=== PATIENT | female | born 1960 | race Hispanic/Latino ===

== ENCOUNTER 2017-11-16 10:15 | Day surgery (SDC) | payer BC ==
[2017-11-12 14:59] LABS: Absolute Lymphocytes (CBC) 1.6 K/uL (0.7-4.9); Absolute Monocytes 0.4 K/uL (0.1-1.3); Basophils % 0.7 % (0-1.3); Eosinophils % 2.8 % (0-4.4); Hematocrit 39.5 % (36.0-45.0); Lymphocytes % 26.3 % (15.3-44.8); MCH 26.5 pg (27.0-35.0); MCV 81.1 fL (80-100); MPV 9.5 fL (7.6-11.3); Monocytes % 5.7 % (3.3-12.3); RBC Red Blood Cell Count 4.87 M/uL (3.86-4.86)
--- NOTE | 2017-11-12 15:05 | EKG ---
Test Date: 2017-11-12 Test Time: 14:48:35 Demi Chef: EDNA MEASUREMENT RESULTS: Intervals: Rate: 59 MN: 134 QRSD: 88 QT: 416 QTc: 411 [place]: P: 23 MN: 134 QRS: 27 T: 35 INTERPRETIVE STATEMENTS: Sinus bradycardia Otherwise normal ECG No previous ECG available for comparison Electronically Signed On 11-12-17 15:05:14 CDT by Dk Pillai
--- NOTE | 2017-11-12 15:28 | RAD REPORT ---
EXAM DESCRIPTION: RAD - Chest Pa And Lat (2 Views) - 11/12/2017 3:21 pm CLINICAL HISTORY: Abdominal pain Chest pain. COMPARISON: CHEST SINGLE VIEW dated 06/17/2015 FINDINGS: The lungs are clear. The heart is normal in size. No displaced fractures. IMPRESSION: No acute or concerning finding suspected.
[2017-11-12 15:33] LABS: ALT/SGPT 35 U/L (12-78); AST/SGOT 26 U/L (15-37); Albumin 4.4 g/dL (3.4-5.0); Alkaline Phosphatase 97 U/L (45-117); Amylase Level 75 U/L (25-115); BUN Blood Urea Nitrogen 18 mg/dL (7-18); Bicarbonate 28 mmol/L (21-32); Bilirubin Direct < 0.1 mg/dL (0-0.2); Bilirubin Total 0.4 mg/dL (0.2-1.0); Glucose Level 90 mg/dL (74-106); Lipase 210 U/L (73-393); Potassium 4.6 mmol/L (3.5-5.1); Protein, Total 8.7 g/dL (6.4-8.2); Sodium Level 140 mmol/L (136-145)
[~2017-11-16 10:15] MED LIST: CEFOXITIN/SWI 1gm 1 GM/10 ML SYR IVP SCH
[2017-11-16] MEDS ORDERED: LIDOCAINE 1% MPF 5 ML VIAL ONE (10:41)
[2017-11-16] MEDS ORDERED: PROPOFOL 200 MG/20 ML VIAL IV ONE (10:41)
[2017-11-16] MEDS ORDERED: MIDAZOLAM HCL 2 MG/2 ML INJ ONE (10:41)
[2017-11-16] MEDS ORDERED: FENTANYL CITR 100 MCG/2 ML ONE (10:42)
[2017-11-16] MEDS ORDERED: ROCURONIUM 50 MG/5 ML VIAL IV ONE (10:42)
[2017-11-16] MEDS ORDERED: NA CHLORIDE 0.9% 1,000 ML ONE (10:49)
[2017-11-16] MEDS ORDERED: CEFOXITIN/SWI 1gm 1 GM/10 ML SYR ONE (11:40)
[2017-11-16] MEDS ORDERED: GLYCOPYRROLATE 0.2 MG/ML SYR ONE ×2 (12:14→12:18)
[2017-11-16] MEDS ORDERED: EPHEDRINE SULF 50 MG/10 ML SYR ONE (12:15)
[2017-11-16] MEDS ORDERED: ONDANSETRON HCL 40 MG/20 ML VIAL ONE (12:18)
[2017-11-16] MEDS ORDERED: KETOROLAC 30 MG/ML INJ ONE (12:18)
[2017-11-16] MEDS ORDERED: NEOSTIGMINE 1 MG/ML -5 ML SYRINGE ONE (12:20)
--- NOTE | 2017-11-16 12:36 | P.BOP ---
Preoperative diagnosis: acute cholecystitis,symptomatic cholelithiasis, RUQ pain Postoperative diagnosis: same Primary procedure: Laparoscopic cholecystectomy Culinary Artist: JACKIE ARREDONDO (product owner) Estimated blood loss: <10cc Specimen: gb Findings: gb edema Anesthesia: General Complications: None Drain(s): Other Transferred to: Recovery Room Condition: Good
[2017-11-16] MEDS: MEPERIDINE HCL 25 MG/0.5 ML ONE ×2 (13:20→13:36)
[2017-11-16 14:32] VITALS: TEMP 97.2
[2017-11-16] MEDS ORDERED: CODEINE 30MG/APAP 300MG TAB ONE (14:45)
[2017-11-16 15:42] VITALS: BP 97/54; O2SAT 98
--- NOTE | 2017-11-17 00:52 | OP ---
Date of Procedure: 11/16/2017 Surgeon: Jamarcus Irene MD Plant Puller: JUDI Ocampo. Preoperative Diagnoses: Acute cholecystitis, symptomatic cholelithiasis, and right upper quadrant pa in. Postoperative Diagnoses: Acute cholecystitis, symptomatic cholelithiasis, and right upper quadrant p ain. Procedure: Laparoscopic cholecystectomy. Ebl: Less than 10 cc. Specimen: Gallbladder. Finding: Gallbladder wall edema consistent with acute cholecystitis, also symptomatic cholelithiasis . Anesthesia: General plus local. Indications: This is a case of a 57-year-old patient with right upper quadrant pain, diagnosed with acute cholecystitis, symptomatic cholelithiasis. The benefits, alternatives, and risks of laparoscop ic, possible open cholecystectomy were fully explained, which include but are not limited to infectio n, bleeding, damage to adjacent structures, anesthesia complication, choledocholithiasis, bile leak, pancreatitis, [place], and even . She also understands this may not relieve any symptoms, she might need more than one surgical intervention. She understood, signed a consent. Description Of Procedure: The patient was brought to the operating room, placed in supine position. Anesthesia was done without complication. Abdominal area was prepped and draped in a sterile fashio n. Marcaine 0.5% injected for local anesthetic followed by sharp incision of the skin in the infraumbilical region. Incision was carried down to fascia, which was opened under direct vision . Peritoneum was encountered, opened under direct vision. Vicryl #1 was placed inside of the fascia . Ambrosio trocar was carefully introduced. Pneumoperitoneum was obtained. I placed 3 more trocars, 5 mm each one of them, in the right upper quadrant under direct visualization, 5 mm each one of them. At that moment, I proceeded to put a grasper in the fundus of the gallbladder and noted the grasper to have some adhesions of omentum to it. That was carefully caught with Endo Susie connected to Waldo vie cauterizer. Hemostasis was obtained. After that, we proceeded to carefully put a grasper in the fundus of the gallbladder, another grasper in the infundibulum. The gallbladder wall looked edemato us, consistent with cholecystitis. The gallbladder was retracted in the inferolateral fashion exposi ng the triangle of [place], obtaining critical view of safety. The cystic duct and cystic artery were clearly isolated free circumferentially and a connection between those and the gallbladder was clearl y identified. I proceeded to ligate those by using at least 3 clips proximal, 1 clip distal, ligatio n in middle. Same was done with the cystic artery. No bile leak. No bleeding. The gallbladder was removed from liver using Bovie cauterizer and removed from abdominal cavity using an EndoCatch throu gh the umbilical incision. The area was inspected once again. No bile leak. No bleeding. The gall bladder was removed from liver using Bovie cauterizer and removed from abdominal cavity using an Endo Catch through the umbilical incision. The area was inspected once again. No bile leak. No bleeding . Clips were intact. At that moment, I proceeded to remove the trocars under direct vision. Deflat ed pneumoperitoneum. Closed the fascia with #1 Vicryl. Irrigated subcutaneous tissue, closed that w ith 3-0 chromic and skin with 3-0 chromic in a subcuticular fashion with Steri-Strips on top. Sponge count and instrument counts were correct. The patient tolerated the procedure well. The patient wa s sent to recovery in stable condition. JENNIFER/VAZQUEZ Voice ID: [id number] Report ID: [id number]
--- NOTE | 2017-11-17 00:52 | DS ---
Date of Discharge: 11/16/2017 Diagnoses: Acute cholecystitis, symptomatic cholelithiasis, and right upper quadrant pain. Procedure: Laparoscopic cholecystectomy. Disposition: Home. Activity: As tolerated. No heavy lifting. Followup: Follow up in my office in 1 week. Call for appointment [phone]. Keep the area dry for 4 8 hours, then may shower. Keep Steri-Strip intact. Medications: Include Bactrim DS p.o. b.i.d. and Tylenol No. 3 q.4 hours p.r.n. pain. JENNIFER/VAZQUEZ Voice ID: [id number] Report ID: [id number]
== END 2017-11-16 15:30 | disposition home or self-care (01) ==
LOC: OR 10:15
PROVIDERS: ATTEND Surgery
PROC: 0FT44ZZ Resection of Gallbladder, Percutaneous Endoscopic Approach (ICD-10-PCS; principal; 2017-11-16 12:45)
DX: K80.12 Calculus of gallbladder with acute and chronic cholecystitis without obstruction (principal)
CPT/HCPCS: 36415; 71046; 80048; 80076; 82150; 82962; 83690; 85025; 88304; 93005; J2175; J2250; J2405; J2710; J3010; J7030